=== PATIENT | female | born 2005 | race Caucasian/White ===

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

== ENCOUNTER 2025-04-21 15:31 | Outpatient (AMB) | payer OTHER, SELFPAY ==
--- NOTE | 2025-04-21 15:35 | A.OFFPC_ITS ---
Vital Signs 04/21/25 15:41 Height 4 ft 8 in Weight 63.957 kg BMI 31.6 BP 146/11 H Respiration 16 Pulse 95 Pulse Source Pulse Oximeter Temp 97.4 F Temp Source Temporal Artery Scan Pulse Oximetry (%) 99 Oxygen Delivery Method Room Air Intake Visit Reasons: New Patient Public Speaking Professor Required: No Accompanied by: Self / Same As Patient Allergies No Known Allergies (No Known Allergies*) Allergy (Verified 04/21/25 15:35) Medication List - Last Reconciled 04/21/25 by BERNICE Alegre fluconazole 150 mg PO Q3D 2 doses Tobacco use date assessed: 04/21/25 Dental Screening Dental Screen Date: 04/21/25 Did you have a dental visit in the last 12 months?: No Did you have a dental problem in the last 6 months where you did not have access to dental care?: No Was dental information given to patient?: No HPI HPI Comments History of Present Illness Details 20-year-old female with history of major depressive disorder with history of suicide attempt, anxiety, PTSD, cerebral palsy with spasticity, sensorineural hearing loss presented to the office today to establish care and for annual physical exam. She is currently living with her mother and feels safe there. However, she does report that her mother is an alcoholic and does wish she would consume less alcohol. She is not working but does desire to return to school. Dropped out of high school at age 16. Plans to re-enroll at [employer]. She does follow a healthy diet overall but does not exercise. She continues smoking 1-2 cigarettes every few days. No longer smokes marijuana but has a hi story. No illicit drug use. Does consume alcohol in excess as a coping mechanism at times. Major depressive disorder/anxiety/PTSD-following with a counselor at [facility]. She is no longer taking any medications and does not follow with a psychiatrist any longer. She states that her counselor does not feel she needs to. However PHQ-9 score is 15 and she has had thoughts of suicide in the past week though has no intent. She currently denies any SI/HI. She is able to text and call her therapist when these thoughts arise. She states that she uses reading and listening to music as a coping mechanism. However at other times, she will drink excessively to numb her feelings. Has been hospitalized multiple times, last hospitalization 1 year ago at [facility]. Last suicide attempt was an intentional overdose of aspirin at age 15. Was previously on fluoxetine and olanzapine but discontinued these several months ago. Cerebral palsy with sensorineural hearing loss and spasticity-not using any braces or muscle relaxers. Has hearing aid in the left ear. Concerns: Potential STI exposure-unprotected sex about 4 months ago. Currently not sexually active. She does not desire but is unsure about control. She does report thick cottage cheeselike vaginal discharge but no other abnormal discharge or urinary symptoms. No known history of STIs Health maintenance: Has never been to pearl glue operator/had Pap smear performed ROS: General: No fevers, malaise, unintentional weight loss HEENT: No blurred vision, diplopia. No sore throat, nasal congestion, rhinorrhea, sinus pain, ear pain. No hearing loss Neck - no adenopathy Cardiovascular: No chest pain, palpitations, or leg edema Respiratory: No shortness of breath, wheezing, cough Breast: No pain, palpable lumps, nipple inversion GI: No dysphagia, odynophagia, globus sensation. No abdominal pain, nausea, vomiting, diarrhea, constipation, melena, hematochezia : No dysuria, hematuria, increased urinary frequency, decreased urinary output. SEQUINS WINDER: see hpi MSK: No myalgia, back pain, arthralgias Neuro: No headaches, weakness, paresthesias Psych: no depression/anxiery. No AH/VH. No SI/HI Skin: No rashes or lesions EXAM: Constitutional - Awake and Alert, No apparent distress Eyes - PERRLA, EOMI. Anicteric Ears - external ears normal, canals clear, TMs intact and pearly pepe with good cone of light Nose- septum midline, nares clear, no sinus tenderness Mouth/throat- mucosa moist, tongue and uvula midline, no erythema/edema or tonsillar adenopathy. Neck-trachea midline, thyroid symmetric without palpable nodules, no adenopathy Cardiovascular - S1S2, RRR, No edema Respiratory - Normal lung expansion, Normal respiratory effort, No respiratory distress, CTA bilaterally Gastrointestinal - NT / ND; +BS; No rebound or guarding - No CVA tenderness Extremities - no calf tenderness bilaterally, no swelling Musculoskeletal - Normal inspection, normal ROM Skin - Warm/Dry, no concerning lesions Neurological - Alert & oriented x3, CN II-XII in tact, 5/5 strength BUE and BLE, 2+ patellar reflexes, sensation intact Psychological - Appropriate affect [facility] Medical History (Updated 04/21/25 @ 17:20 by BERNICE Alegre) History of suicide attempt Major depressive disorder Sensorineural hearing loss Hemiplegic cerebral palsy Hearing impaired Cerebral palsy Pilonidal abscess Surgical History (Updated 04/21/25 @ 15:53 by BERNICE Alegre) No pertinent past surgical history Family History (Updated 04/21/25 @ 15:54 by BERNICE Alegre) Other No significant family history Social History Household Members: Family Housing: Apartment Do you presently have visiting nurse or other home services: No Patient Tobacco Use Status: Current everyday Tobacco user Cigarettes Per Day: 2 e-Cigarette/Vaping Use: Never Used Substance Use Type: Marijuana service: No Current occupational status: disabled Sexual orientation: Straight/Heterosexual Cognitive needs: No Hearing needs: Yes (Bilateral) Vision needs: No Questionnaire PHQ-9 Over the last 2 weeks, how often have you been bothered by any of the following problems? 1. Little interest or pleasure in doing things: more than half the days 2. Feeling down, depressed, or hopeless: more than half the days 3. Trouble falling or staying asleep, or sleeping too much: several days 4. Feeling tired or having little energy: more than half the days 5. Poor appetite or overeating: several days 6. Feeling bad about yourself - or that you are a failure or have let yourself or your family down: more than half the days 7. Trouble concentrating on things, such as reading the newspaper or watching television: more than half the days 8. Moving or speaking so slowly that other people could have noticed. Or the opposite - being so fidgety or restless that you have been moving around a lot more than usual: several days 9. Thoughts that you would be better off or of hurting yourself in some way: more than half the days Total score: 15 Depression Screening Interpretation: Positive Depression Screening Done: Yes 09562 - PHQ-9 Billing: Yes Source: Developed by Drs. Jonel Shi, Violetta Mendez, Leonid Mcduffie and colleagues, with an educational emily from [employer]. Thrive Questionnaire Date Thrive assessed: 04/21/25 I am a: Patient What is your living situation today?: I have a steady place to live Within the past 12 months, did the food you bought not last and you didn't have the money to get more?: Never true Within the past 12 months, did you worry whether your food would run out before you got money to buy more?: Never true Do you have trouble paying for medicines?: No Do you have trouble getting transportation to medical appointments?: No Do you have trouble paying your heating and electricity bill?: No Do you have trouble taking care of your child, family member or friend?: No Do you have trouble with day-to-day activities such as bathing, preparing meals, shopping, managing finances, etc.?: No Are you currently unemployed and looking for a job?: Yes Are you interested in more education?: Yes Currently or been in a relationship where the following occur: No concerns reported THRIVE Score: 0 AUDIT C Alcohol Use Questionnaire (AUDIT-C) 1. How often do you have a drink containing alcohol?: Monthly or less Total Score: 1 TERESA-7 AMB Questionnaire TERESA-7 Date TERESA - 7 assessed: 04/21/25 Feeling nervous, anxious, or on edge: 3 = Nearly every day Not being able to stop or control worryin = More than half the days Worrying too much about different things: 3 = Nearly every day Trouble relaxin = Nearly every day Being so restless that it is hard to sit still: 1 = Several days Becoming easily annoyed or irritable: 3 = Nearly every day Feeling afraid as if something awful might happen: 3 = Nearly every day Total TERESA-7 score (0-4 normal; 5-9 mild; 10-14 moderate; 15-21 severe): 18 Source: Developed by Drs. Jonel Shi, Violetta Mendez, Leonid Mcduffie and colleagues, with an educational emily from [employer]. TERESA-7 Assessment Billing TERESA-7 Assessment Tool: TERESA-7 Assessment 76301 Physical exam (Primary Care) Vital Signs: Last Vital Signs Temp 97.4 F 04/21/25 15:41 Pulse 95 04/21/25 15:41 Resp 16 04/21/25 15:41 BP 146/11 H 04/21/25 15:41 Pulse Ox 99 04/21/25 15:41 Oxygen Delivery Method Room Air 04/21/25 15:41 BMI result Body Mass Index 31.6 Tobacco/Smoking Status: Tobacco use Status Tobacco use date assessed 04/21/25 04/21/25 15:40 Patient Tobacco Use Status Current everyday Tobacco 04/21/25 15:40 e-Cigarette/Vaping Use Never Used 04/21/25 15:40 PHQ-9: PHQ-9 Score PHQ-9: Total score 15 04/21/25 16:27 Depression Screening Interpretation: Positive Thrive Assessment: Date of Thrive Assessment Date Thrive assessed 04/21/25 04/21/25 16:21 Currently or been in a relationship where the following occur: No concerns reported Coding Level of Care Code New Pt Prev Care 18-39yr(64121 Diagnoses Routine medical exam Z00.00 Hemiplegic cerebral palsy G80.8 Sensorineural hearing loss H90.5 Major depressive disorder F32.9 Vulvovaginal candidiasis B37.31 Additional Codes TERESA-7 Assessment Billing - TERESA-7 Assessment Tool: TERESA-7 Assessment 56926 ([id number]) PHQ-9 - 13851 - PHQ-9 Billing: Yes ([id number]) Assessment & Plan Assessment & Plan (1) Routine medical exam: Code(s): Z00.00 - Encounter for general adult medical examination without abnormal findings Plan: 20-year-old female presenting for annual physical exam. Plan as below (2) Hemiplegic cerebral palsy: Code(s): G80.8 - Other cerebral palsy Category: Medical Plan: Stable (3) Sensorineural hearing loss: Code(s): H90.5 - Unspecified sensorineural hearing loss Category: Medical Plan: Continue with hearing aids. Continue following with audiology (4) Major depressive disorder: Code(s): F32.9 - Major depressive disorder, single episode, unspecified Category: Medical Plan: Unstable. Patient adamantly opposes psychiatry referral. Does appear to have good relationship with her counselor whom she will continue following with. Currently no alarm symptoms necessitating crisis intervention. Counseled against using alcohol and cigarettes as coping mechanisms. Advised to contact 911 or her counselor should symptoms worsen. Go to the ER should she develop any suicidal thoughts. Continue with positive coping mechanisms. She declines medications at this time (5) Vulvovaginal candidiasis: Code(s): B37.31 - Acute candidiasis of vulva and vagina Category: Medical Plan: Fluconazole prescribed Plan Routine screening labs as ordered below Referred for Pap smear Continue following for annual skin exams and use sun protection Annual eye exams Wear seat belt in car Recommend regular exercise and healthy diet STD testing ordered. Counseled on safe sex practices. Counseled on control but declines. She does consent to HIV testing Orders: Orders Basic Metabolic Panel Today Z00.00 - Encounter for general adult medical examination without abnormal findings, Z20.2 - Contact with and (suspected) exposure to infections with a predominantly sexual mode of transmission Lipid Panel Today Z00.00 - Encounter for general adult medical examination without abnormal findings, Z20.2 - Contact with and (suspected) exposure to infections with a predominantly sexual mode of transmission TSH reflex Free T4 Today Z00.00 - Encounter for general adult medical examination without abnormal findings, Z20.2 - Contact with and (suspected) exposure to infections with a predominantly sexual mode of transmission Trichomonas vaginalis RNA Today Z00.00 - Encounter for general adult medical examination without abnormal findings, Z20.2 - Contact with and (suspected) exposure to infections with a predominantly sexual mode of transmission Liver Panel Today Z00.00 - Encounter for general adult medical examination without abnormal findings, Z20.2 - Contact with and (suspected) exposure to infections with a predominantly sexual mode of transmission Complete Blood Count Auto Diff Today Z00.00 - Encounter for general adult medical examination without abnormal findings, Z20.2 - Contact with and (suspected) exposure to infections with a predominantly sexual mode of transmission HIV Ab/Ag Today Z00.00 - Encounter for general adult medical examination without abnormal findings, Z20.2 - Contact with and (suspected) exposure to infections with a predominantly sexual mode of transmission Syphilis Screen Today Z00.00 - Encounter for general adult medical examination without abnormal findings, Z20.2 - Contact with and (suspected) exposure to infections with a predominantly sexual mode of transmission CT NG by PCR Urine Today Z00.00 - Encounter for general adult medical examination without abnormal findings, Z20.2 - Contact with and (suspected) exposure to infections with a predominantly sexual mode of transmission 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
[2025-04-21 15:41] VITALS: BP 146/11; PULSE 95; RESP 16; TEMP 36.3; O2SAT 99; BMI 31.6
--- OUTSIDE RECORDS SUMMARY | 2025-04-21 18:20 | XMS_ITS | Clinical Summary ---
Author Organization [employer] Address [address] [place] [address] [address] [place] [address] Care Team Providers Care Maintenance And Custodian Supervisor Name Role Phone Unavailable Primary Care Provider [...] from the original. C3/CM Jennifer Howell RN [id number] Delio Justice Problem Noted Date Diagnosed Date Other specified health status 05/02/2024 Overview (05/02/2024): -next comprehensive annual evaluation due after -eye care facilitated by -dental home is -tanner care proxy Moderately severe recurrent major depression Overview (05/02/2024): Currently taking Prozac 20 mg, Zyprexa 2.5 mg and Trazodone 50 mg. Hemiplegic cerebral palsy 10/01/2013 Sensorineural hearing loss 10/01/2013 Immunizations Immunization Administration Dates Next Due DTaP / Hep [...] is your housing situation today? I have shannonyoselin parsons 05/24/[address] you [...] Weight 60.4 kg (133 lb 3.2 oz) 06/01/2022 10:24 AM EDT Height 144.8 cm (4' 9 ) 06/01/2022 10:24 AM EDT Body Mass Index 28.82 06/01/2022 10:24 AM EDT Plan of Treatment Health Maintenance Due Date Last Done Comments Depression Screening 2005 Disability Screening 2005 Alcohol/Substance Use Screening 2017 Tobacco Screening 2017 Family Planning (PISQ) 02/27/2020 Meningococcal B Vaccine (1 of 2 - Standard) 2021 Hepatitis C Screening 2023 HIV Screening 04/16/2024 SDOH Screening 08/06/2024 08/06/2023 Chlamydia and Gonorrhea Screening 09/19/2024 09/19/2023, 08/01/2023 COVID-19 Vaccine ( season) 2025 Influenza Vaccine (#1) 2025 , 06/13/2018, 07/06/2016, Additional history exists DTaP/Tdap/Td Vaccines (7 - Td or Tdap) [...] Years) and At-Risk Patients (6 to 49) Years Aged Out 06/12/2006, 2005, 2005, Additional history exists No longer eligible based on patient's age to complete this topic IPV Vaccines Completed 04/01/2009, 08/30, 2005, Additional history exists Hepatitis A Vaccines Completed 10/01/2013, 12/31/19 11 Meningococcal Vaccine Aged Out 07/06/2016 No deonte lance eligible based on patient's age to complete this topic HPV Vaccines Completed 01/18/2017, 07/06/2016 RSV under 20 months Aged Out No longe r eligible based on patient's age to complete this topic Rotavirus Vaccines Aged Out No longer eligible based on patient's age to complete this topic Insurance [facility] C3
--- OUTSIDE RECORDS SUMMARY | 2025-04-21 18:20 | XMS_ITS | Clinical Summary ---
Author Organization [facility] Address [address] [facility] [address] [place] [phone] Phone Care Team Providers Care Living Specialist Name Role Phone Pcp, Unknown Primary Care Provider Unavailabl e Allergies No known active allergies Medications FLUoxetine (PROZAC) 20 MG capsule Take 20 mg by mouth. 09/11/2022 Active OLANZapine (ZYPREXA) 2.5 MG tablet Take 1 tablet by mouth nightly at bedtime. 09/11/2022 Active traZODone (DESYREL) 50 MG tablet Take 50 mg by mouth nightly at bedtime as needed. 09/11/2022 Active Social History Tobacco Use Types Packs/Day Years Used Date Smoking Tobacco: Never Assessed Education Answer Date Recorded Are you interested in more education? Not on marques e 08/01/2023 Are you concerned about learning? Not on file 08/01/2023 No 08/01/2023 No 08/01/2023 Digital Access Answer Date Recorded No 08/01/2023 No 08/01/2023 Reliable internet access at home? Not on file 08/01/2023 Device with a working camera? Not on file Intimate Partner Violence Answer Date R ecorded Are you denied basic needs s uch as food, clothing, or medical care? No 12/26/2023 In the past 12 months have y ou been in a relationship with a person who hurts, threatens, or tries to control you? No 12/26/2023 Are you denied basic needs s uch as food, clothing, or medical care? No 12/26/2023 In the past 12 months have y ou been in a relationship with a person who hurts, threatens, or tries to control you? No 12/26/2023 Comments Unknown Sex and Gender Information Value Date Recorded Sex Assigned at Female 09/19/2023 12:57 PM EST Legal Sex Female 1:46 AM EST Gender Identity Female 09/19/2023 12:57 PM EST Sexual Orientation Straight 09/19/2023 12 :57 PM EST Last Filed Vital Signs Vital Sign Reading Time Taken Comments Blood Pressure 96/69 12/26/2023 12:14 PM EDT Pulse 78 12/26/2023 12:14 PM EDT Temperature 35.9 C (96.6 F) 12/26/2023 12:14 PM EDT Respiratory Rate 20 12/26/2023 12:14 PM EDT Oxygen Saturation 96% 12/26/2023 12:14 PM EDT Inhaled Oxygen Concentration - - Weight 68 kg (150 lb) 12/26/2023 11:05 AM EDT Height 142.2 cm (4' 8 ) 12/26/2023 11:05 AM EDT Body Mass Index 33.63 12/26/2023 11:05 AM EDT Plan of Treatment Health Maintenance Due Date Last Done Comments DEVELOPMENTAL/BEHAVIORAL SCREENING (PHQ, PSC, or SWYC) 02/27/2008 DEPRESSION SCREENING 2017 SMOKING Hx and SMOKELESS TOBACCO SCREENING 2018 HPV VACCINES (1 - 3-dose series) 02/27/2020 MENINGOCOCCAL VACCINES (B) ( 1 of 2 - Standard) 2021 ADOLESCENT UNIVERSAL LIPID SCREENING 2022 HEPATITIS C SCREENING 2023 HIV ONE-TIME SCREENING (18-6 5 YEARS) 2023 CHLAMYDIA SCREENING 09/19/2024 09/19/2023, 08/01/2023 INFLUENZA VACCINE (#1) 2025 COVID-19 VACCINE ( - 2023-2 5 season) 2025 COMBINED DTaP,Tdap,Td (4 - T d or Tdap) 07/06/2026 07/06/2016, 04/01/2009, 06/12/2006 MMR VACCINES Completed 04/01/2009, 03/12/2006 VARICELLA VACCINES Completed 04/01/2009, 03/12/2006 HEPATITIS A VACCINES Aged Out No long er eligible based on patient's age to complete this topic HIB VACCINES Aged Out No longer eligi ble based on patient's age to complete this topic MENINGOCOCCAL VACCINES (ACWY) Aged Out No longer eligible based on patient's age to complete this topic PNEUMOCOCCAL VACCINES (0-49 years) Aged Out No longer eligible b ased on patient's age to complete this topic Medical Devices Not on file Procedures Procedure Name Priority Date/Time Associated Diagnosis Comments CHLAMYDIA TRACHOMATIS AND NEISSERIA GONORRHOEAE NUCLEIC ACID DETECTION STAT 09/19/2023 1:09 PM EST from Last 3 Months or Most Recently Relevant to Health Maintenance Results * Chlamydia Trachomatis and Neisseria Gonorrhoeae Nucleic Acid Detection (09/19/2023 1:09 PM EST) CHLAMYDIA TRACHOMATIS Not Detected Not Detected [facility] NEISERIA GONORRHOEAE Not Detected Not Detected [facility] SPECIMEN TYPE CERVIX [facility] Other (Cervical) 09/19/2023 1:09 PM EST 09/19/2023 1:16 PM EST us Yashira Clayton PA-C NON CULTURE MICROBIOL OGY Final Result Performing Organization Address City/State/[facility] Co de Phone Number [facility] [address] [place], [place] [phone] from Last 3 Months or Most Recently Relevant to Health Maintenance Insurance * Guarantor: Coreen Villalpando Account Type Relation to Patient Date of Phone Billing Address Personal/Family Self 2005 [address] [place], [place] [phone] [place] [address] [employer] * Guarantor: Coreen Villalpando Account Type Relation to Patient Date of Phone Billing Address Personal/Family Self 2005 [address] [place] [address] [facility] [employer] [place] [address] [place] [address] [place] [address] [employer] [facility] [employer] Care Teams Living Specialist Relationship Specialty Start Date End Date Pcp, Unknown PCP - General 08/01/23 Additional Source Comments The information contained in this document represents components of the legal health record. It is not the complete legal health record.[facility]
--- OUTSIDE RECORDS SUMMARY | 2025-04-21 18:20 | XMS_ITS | Encounter Summary ---
Author Organization [employer] Address [address] [place] [address] [address] [place] [phone] Care Team Providers Care Remote Sensing Analyst Name Role Phone John Avila MD Primary Care Provider [phone] Encounter Details Date Type Department Care Team (Late st Contact Info) Description 08/16/2022 Orders Only [facility] [address] [place], [place] [phone] John Avila MD [address] [place], [place] [phone] Noise-induced hearing loss, unspecified laterality (Primary Dx); [...] laterality documented in this encounter Care Teams Remote Sensing Analyst Relationship Specialty Start Date End Date John Avila MD [address] [place], [place] [phone] PCP - General Pediatrics 07/30/18 05/23/23 documented as of this encounter
--- OUTSIDE RECORDS SUMMARY | 2025-04-21 18:20 | XMS_ITS | Encounter Summary ---
Author Organization [employer] Address [address] [facility] [address]t [place] [address] Care Team Providers Care Associate Principal Name Role Phone John Avila MD Primary Care Provider Encounter Details Date Type Department Care Team (Late st Contact Info) Description 03/13/2023 Orders Only [facility] [address] [place] [address] Shereen Juarez LPN Social History Tobacco Use [...] on filedocumented in this encounter Care Teams Associate Principal Relationship Specialty Start Date End Date John Avila MD [address] [place] [id number] PCP - General Pediatrics 07/30/18 05/23/23 documented as of this encounter
--- OUTSIDE RECORDS SUMMARY | 2025-04-21 18:20 | XMS_ITS | Encounter Summary ---
Author Organization [employer] Address [address] [place] [address] [address] [place] [address] Care Team Providers Care Cutter In Name Role Phone John Avila MD Primary Care Provider [phone] Reason for Visit * Reason Comments Med Refill Encounter Details Date Type Department Care Team (Late st Contact Info) Description 03/13/2023 Refill [facility] [address] [place], [place] [phone] John Avila MD [address] [place], [place] [phone] Social History Tobacco Use Types Packs/Day Years [...] on filedocumented in this encounter Care Teams Cutter In Relationship Specialty Start Date End Date John Avila MD [address] [place] [phone] PCP - General Pediatrics 07/30/18 05/23/23 documented as of this encounter
--- OUTSIDE RECORDS SUMMARY | 2025-04-21 18:20 | XMS_ITS | Encounter Summary ---
Author Organization [employer] Address [address] [facility] [address] [place] [id number] Care Team Providers Care Invasive Manager Name Role Phone John Avila MD Primary Care Provider [phone] Encounter Details Date Type Department Care Team (Late st Contact Info) Description 10/11/2022 Telephone [facility] [address] [place], [place] [phone] John Avila MD [address] [place], [place] [phone] Social History Tobacco Use Types Packs/Day Years [...] on filedocumented in this encounter Care Teams Invasive Manager Relationship Specialty Start Date End Date John Avila MD [address] [place] [address] PCP - General Pediatrics 07/30/18 05/23/23 documented as of this encounter
--- OUTSIDE RECORDS SUMMARY | 2025-04-21 18:20 | XMS_ITS | Encounter Summary ---
Author Organization [employer] Address [address] [facility] [address] [place] [address] Care Team Providers Care Numerical Control Operator Name Role Phone John Avila MD Primary Care Provider Encounter Details Date Type Department Care Team (Late st Contact Info) Description 09/11/2022 Orders Only [facility] [address] [place] [address] Shereen Juarez LPN Social History Tobacco Use [...] on filedocumented in this encounter Care Teams Numerical Control Operator Relationship Specialty Start Date End Date John Avila MD [address] [place] [phone] PCP - General Pediatrics 07/30/18 05/23/23 documented as of this encounter
== END 2025-04-21 17:17 | disposition home or self-care (01) ==
LOC: HO.HMCHD 15:31
PROVIDERS: Visit Provider Physician Assistant
DX: Z00.00 Encounter for general adult medical examination without abnormal findings (principal); G80.8 Other cerebral palsy; H90.5 Unspecified sensorineural hearing loss; F32.9 Major depressive disorder, single episode, unspecified; B37.31 Acute candidiasis of vulva and vagina

== ENCOUNTER → 2025-04-21 15:31 | Outpatient (BNVA) | payer OTHER, SELFPAY | PROVIDERS: Visit Provider Physician Assistant | DX: Z00.00 Encounter for general adult medical examination without abnormal findings (principal); G80.8 Other cerebral palsy; H90.5 Unspecified sensorineural hearing loss; F32.9 Major depressive disorder, single episode, unspecified; B37.31 Acute candidiasis of vulva and vagina; G80.9 Cerebral palsy, unspecified; Z13.31 Encounter for screening for depression; Z13.39 Encounter for screening examination for other mental health and behavioral disorders | CPT/HCPCS: 96127; 99385 ==